=== PATIENT | male | born 2000 | race Caucasian/White ===

== ENCOUNTER 2020-02-15 07:49 | Emergency (ER) | payer OTHER ==
[~2020-02-15] VITALS: Ht 170.2 cm; Wt 59.0 kg
[~2020-02-15 07:49] MED LIST: PREDNISONE20 MG PO; ROBITUSSIN COU118 ML PO; SEROQUEL25 MG PO; TRAMADOL HCL50 MG PO; ULTRAM50 MG PO; ZITHROMAX250 MG PO
[2020-02-15] MEDS ORDERED: CYCLOBENZAPRINE10 MG PO (08:12)
== END 2020-02-15 08:22 | disposition home or self-care (01) ==
LOC: ED 07:49
DX: S29.012A Strain of muscle and tendon of back wall of thorax, initial encounter (principal); F17.200 Nicotine dependence, unspecified, uncomplicated; X58.XXXA Exposure to other specified factors, initial encounter
CPT/HCPCS: 99283; A9270

== ENCOUNTER 2020-02-19 18:24 | Emergency (ER) | payer OTHER ==
[~2020-02-19] VITALS: Ht 170.2 cm; Wt 59.0 kg
[~2020-02-19 18:24] MED LIST changes: +CYCLOBENZAPRINE10 MG PO
--- OUTSIDE RECORDS SUMMARY | 2020-02-19 18:34 | XMS ---
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 Carrillo has no Care Guidelines for this patient. [facility] (12 MO.) [facility] NOTE: Visits indicate total known visits. ED/[facility] [place] VISIT TRACKING (12 MO.) 02/19/2020 18:25 [facility] [place] TYPE: Emergency COMPLAINT: - BACK INJURY 02/15/2020 07:49 [facility] [place] TYPE: Emergency COMPLAINT: - BACK PAIN DIAGNOSES: - Strain of muscle and tendon of back wall of thorax, initial e - Nicotine dependence, unspecified, uncomplicated - Dorsalgia, unspecified - Exposure to other specified factors, initial encounter INPATIENT VISIT TRACKING (12 MO.) No inpatient visits to display in this time frame [email or web address]
[2020-02-19] MEDS ORDERED: DICLOFENAC SODI75 MG PO (21:06)
== END 2020-02-19 21:20 | disposition home or self-care (01) ==
LOC: ED 18:24
DX: S29.012A Strain of muscle and tendon of back wall of thorax, initial encounter (principal); J45.909 Unspecified asthma, uncomplicated; F17.200 Nicotine dependence, unspecified, uncomplicated; X58.XXXA Exposure to other specified factors, initial encounter
CPT/HCPCS: 72128; 99283-25

== ENCOUNTER 2020-03-22 17:19 | Emergency (ER) | payer SELFPAY ==
[~2020-03-22] VITALS: Ht 170.2 cm; Wt 59.0 kg
[~2020-03-22 17:19] MED LIST changes: +DICLOFENAC SODI75 MG PO
== END 2020-03-22 18:41 | disposition home or self-care (01) ==
LOC: ED 17:19
DX: S61.216A Laceration without foreign body of right little finger without damage to nail, initial encounter (principal); F17.200 Nicotine dependence, unspecified, uncomplicated; W26.0XXA Contact with knife, initial encounter
CPT/HCPCS: 99282

== ENCOUNTER 2021-02-15 14:38 | Emergency (ER) | payer OTHER ==
[~2021-02-15] VITALS: Ht 170.2 cm; Wt 61.2 kg
[2021-02-15] MEDS ORDERED: CEPHALEXIN500 M1 PO (15:47)
== END 2021-02-15 15:58 | disposition home or self-care (01) ==
LOC: ED 14:38
DX: M79.641 Pain in right hand (principal); J45.909 Unspecified asthma, uncomplicated; F17.200 Nicotine dependence, unspecified, uncomplicated
CPT/HCPCS: 73130; 99283-25

== ENCOUNTER 2022-08-15 05:04 | Emergency (ER) | payer SELFPAY ==
[~2022-08-15] VITALS: Ht 170.2 cm; Wt 70.1 kg
[~2022-08-15 05:04] MED LIST changes: +CEPHALEXIN500 M1 PO
[2022-08-15] MEDS ORDERED: ONDANSETRON ODT8 MG PO (06:41)
[2022-08-15] MEDS ORDERED: VENTOLIN HFA18 GM INH (06:41)
[2022-08-15] MEDS ORDERED: CYCLOBENZAPRINE10 MG PO (06:41)
== END 2022-08-15 07:03 | disposition home or self-care (01) ==
LOC: ED 05:04
DX: J10.1 Influenza due to other identified influenza virus with other respiratory manifestations (principal); Z20.822 Contact with and (suspected) exposure to COVID-19; J45.909 Unspecified asthma, uncomplicated; F17.200 Nicotine dependence, unspecified, uncomplicated
CPT/HCPCS: 87502; 99283; U0003

== ENCOUNTER 2024-10-10 18:53 | Emergency (ER) | payer OTHER ==
[~2024-10-10] VITALS: Ht 175.3 cm; Wt 70.8 kg
[~2024-10-10 18:53] MED LIST changes: +ONDANSETRON ODT8 MG PO; +VENTOLIN HFA18 GM INH
[2024-10-10] MEDS ORDERED: TRIAMCINOLONE A15 G1 TOP (20:17)
[2024-10-10 20:31] VITALS: BP 140/67
== END 2024-10-10 20:30 | disposition home or self-care (01) ==
LOC: ED 18:53
DX: L25.8 Unspecified contact dermatitis due to other agents (principal); J45.909 Unspecified asthma, uncomplicated; F17.200 Nicotine dependence, unspecified, uncomplicated; Z79.899 Other long term (current) drug therapy
CPT/HCPCS: 99282